=== PATIENT | female | born 1940 | race Caucasian/White ===

== ENCOUNTER 2017-11-13 14:29 | Emergency (ER) | payer MEDICARE ==
[~2017-11-13 14:29] MED LIST: ALPR0.255 PO; AMLO5TAB2 PO; ASPI-555 PO; LEVO75 PO; LISI-613 PO; OLOP2.5D OP; OXYB5TAB10 PO; PANT40TA25 PO; PROP15DR28 OP; SERT25TA PO
[2017-11-13 14:45] LABS: BASOPHILS % (AUTO) 0.9 % (0.0-5.0); EOSINOPHILS % (AUTO) 2.3 % (0.0-8.0); HEMATOCRIT 34.9 % (36-48); LYMPHOCYTES % (AUTO) 36.6 % (21.0-51.0); MEAN CORPUSCULAR HGB CONC 35.4 g/dL (32.0-36.0); MEAN CORPUSCULAR VOLUME 87.6 fL (79-99); MONOCYTES % (AUTO) 6.9 % (3.0-13.0); NEUTROPHILS % (AUTO) 53.3 % (40.0-77.0); NUCLEATED RED BLOOD CELLS 0.1 % (0.0-0.19); PLATELET COUNT (AUTO) 306 K/uL (130-400); RED BLOOD CELL COUNT(AUTO) 3.99 MIL/uL (4.00-5.50); RED CELL DISTRIBUTION WIDTH 13.7 % (11.0-15.5)
[2017-11-13 15:06] LABS: POTASSIUM 4.5 mmol/L (3.5-5.1)
[2017-11-13 15:19] LABS: BILIRUBIN,TOTAL 0.6 mg/dL (0.2-1.0); CREATINE KINASE MB 0.8 ng/mL (0.5-3.6); TOTAL PROTEIN, SERUM 7.6 g/dL (6.0-8.3)
[2017-11-13 15:26] LABS: INR 0.97 (0.85-1.15); PARTIAL THROMBOPLASTIN TIME 25.4 SEC (26.3-35.5)
[2017-11-13 15:50] LABS: AMYLASE 33 U/L (25-115); LIPASE < 50 U/L (114-286)
[2017-11-13 16:50] LABS: APPEARANCE,URINE Cloudy (CLEAR); BILIRUBIN,URINE Negative (NEGATIVE); COLOR,URINE Yellow (YELLOW); GLUCOSE, URINE (UA) Negative (NEGATIVE); KETONES,URINE Negative (NEGATIVE); LEUKOCYTE ESTERASE ,URINE Large (NEGATIVE); NITRATE,URINE Negative (NEGATIVE); OCCULT BLOOD,URINE Negative (NEGATIVE); PROTEIN,URINE Negative (NEGATIVE); UROBILINOGEN,URINE 0.2 mg/dL (0.2-1.0)
[2017-11-13 17:11] LABS: BACTERIA,URINE Few /HPF (None Seen); RBC,URINE None Seen /HPF (0-1); SQUAMOUS EPITHELIAL CELL,UR 30-50 /HPF (0-2); WBC,URINE 26-50 /HPF (0-1)
[2017-11-13] MEDS ORDERED: SODIUM CHLORIDE 0.9% 1000ML 1,000 ML IV ONE (18:01)
[2017-11-13] MEDS ORDERED: LEVOFLOXACIN 500 MG TABLET ONE (18:02)
== END 2017-11-13 19:09 | disposition home or self-care (01) ==
LOC: EDH 14:29
DX: N39.0 Urinary tract infection, site not specified (principal); R10.84 Generalized abdominal pain; I10 Essential (primary) hypertension; R63.0 Anorexia; Z88.0 Allergy status to penicillin; Z88.8 Allergy status to other drugs, medicaments and biological substances; Z90.49 Acquired absence of other specified parts of digestive tract
CPT/HCPCS: 36415; 71045; 74176; 80053; 81001; 82150; 82550; 82553; 83605; 83690; 84484; 85025; 85378; 85610; 85730; 87088; 87186; 93005; 96360; 99285; J7030

== ENCOUNTER 2017-11-25 13:57 | Emergency (ER) | payer MEDICARE ==
[2017-11-25 14:28] LABS: BASOPHILS % (AUTO) 0.9 % (0.0-5.0); EOSINOPHILS % (AUTO) 2.2 % (0.0-8.0); HEMATOCRIT 35.2 % (36-48); LYMPHOCYTES % (AUTO) 24.6 % (21.0-51.0); MEAN CORPUSCULAR HEMOGLOBIN 29.7 pg (27.0-33.0); MEAN CORPUSCULAR HGB CONC 34.2 g/dL (32.0-36.0); MEAN CORPUSCULAR VOLUME 87.1 fL (79-99); NEUTROPHILS % (AUTO) 66.3 % (40.0-77.0); PLATELET COUNT (AUTO) 314 K/uL (130-400); RED BLOOD CELL COUNT(AUTO) 4.04 MIL/uL (4.00-5.50); RED CELL DISTRIBUTION WIDTH 13.6 % (11.0-15.5); WHITE BLOOD COUNT (AUTO) 4.9 K/uL (4.8-10.8)
[2017-11-25 14:42] LABS: POTASSIUM 4.6 mmol/L (3.5-5.1)
[2017-11-25 14:47] LABS: BILIRUBIN,TOTAL 0.7 mg/dL (0.2-1.0); TOTAL PROTEIN, SERUM 7.4 g/dL (6.0-8.3)
[2017-11-25] MEDS ORDERED: IOPAMIDOL-370 75 ML VIAL IV ONE (15:58)
[2017-11-25] MEDS ORDERED: BISACODYL 10 MG SUPP.RECT RC ONE (17:31)
== END 2017-11-25 18:16 | disposition home or self-care (01) ==
LOC: EDH 13:57
DX: K56.41 Fecal impaction (principal); I10 Essential (primary) hypertension; G20 Parkinson's disease; Z88.0 Allergy status to penicillin; Z88.1 Allergy status to other antibiotic agents; Z88.8 Allergy status to other drugs, medicaments and biological substances
CPT/HCPCS: 36415; 74177; 80053; 85025; 99285; Q9967

== ENCOUNTER 2018-01-13 10:48 | Inpatient (IN) | payer MEDICARE ==
[~2018-01-13] VITALS: Ht 121.9 cm; Wt 60.5 kg
[2018-01-13 12:05] LABS: BASOPHILS % (AUTO) 0.9 % (0.0-5.0); EOSINOPHILS % (AUTO) 0.9 % (0.0-8.0); HEMATOCRIT 34.7 % (36-48); LYMPHOCYTES % (AUTO) 29.7 % (21.0-51.0); MEAN CORPUSCULAR HEMOGLOBIN 30.3 pg (27.0-33.0); MEAN CORPUSCULAR HGB CONC 34.2 g/dL (32.0-36.0); MEAN CORPUSCULAR VOLUME 88.6 fL (79-99); MONOCYTES % (AUTO) 6.5 % (3.0-13.0); PLATELET COUNT (AUTO) 337 K/uL (130-400); RED BLOOD CELL COUNT(AUTO) 3.92 MIL/uL (4.00-5.50); RED CELL DISTRIBUTION WIDTH 13.8 % (11.0-15.5); WHITE BLOOD COUNT (AUTO) 4.9 K/uL (4.8-10.8)
[2018-01-13 12:12] LABS: POTASSIUM 4.7 mmol/L (3.5-5.1)
[2018-01-13 12:18] LABS: ALBUMIN 3.8 g/dL (3.5-5.0); BILIRUBIN,TOTAL 0.8 mg/dL (0.2-1.0); TOTAL PROTEIN, SERUM 7.2 g/dL (6.0-8.3)
[2018-01-13 12:23] LABS: INR 1.01 (0.85-1.15); PARTIAL THROMBOPLASTIN TIME 26.8 SEC (26.3-35.5); PROTHROMBIN TIME 10.6 SEC (9.6-11.6)
[2018-01-13] MEDS ORDERED: HYDRALAZINE HCL 20 MG/ML VIAL IV PRN (13:00)
[2018-01-13] MEDS ORDERED: NITROGLYCERIN 1GM/1 INCH PACKET TD ONE (13:01)
[2018-01-13] MEDS ORDERED: MORPHINE SULFATE 4 MG/1ML SYG ONE (13:02)
[2018-01-13 15:17] LABS: CREATINE KINASE MB 0.9 ng/mL (0.5-3.6); CREATINE KINASE, TOTAL 27 U/L (21-232); MYOGLOBIN 52 ng/mL (10-92); TROPONIN I < 0.04 ng/mL (0.00-0.06)
[2018-01-13 21:19] LABS: CREATINE KINASE MB 1.3 ng/mL (0.5-3.6); CREATINE KINASE, TOTAL 35 U/L (21-232); MYOGLOBIN 79 ng/mL (10-92); TROPONIN I < 0.04 ng/mL (0.00-0.06)
[2018-01-14 05:56] LABS: HEMATOCRIT 33.9 % (36-48); MEAN CORPUSCULAR HEMOGLOBIN 30.7 pg (27.0-33.0); MEAN CORPUSCULAR HGB CONC 34.7 g/dL (32.0-36.0); MEAN CORPUSCULAR VOLUME 88.2 fL (79-99); PLATELET COUNT (AUTO) 297 K/uL (130-400); RED BLOOD CELL COUNT(AUTO) 3.84 MIL/uL (4.00-5.50); WHITE BLOOD COUNT (AUTO) 5.1 K/uL (4.8-10.8)
[2018-01-14 06:21] LABS: CARBON DIOXIDE 27 mmol/L (21-32); CHLORIDE 101 mmol/L (101-111); CREATINE KINASE MB 1.5 ng/mL (0.5-3.6); CREATINE KINASE, TOTAL 37 U/L (21-232); GLOMERULAR FILTR. RATE CALC 57 mL/min (>60); GLUCOSE,RANDOM 113 mg/dL (70-105); MYOGLOBIN 77 ng/mL (10-92); POTASSIUM 3.9 mmol/L (3.5-5.1); SODIUM SERUM 136 mmol/L (136-145); TROPONIN I < 0.04 ng/mL (0.00-0.06); UREA NITROGEN, BLOOD 16 mg/dL (7-18)
[2018-01-14 06:32] LABS: BAND NEUTROPHILS % (MANUAL) 1 % (0-2); EOSINOPHILS % (MANUAL) 3 % (1-6); LYMPHOCYTES % (MANUAL) 37 % (22-44); MAN.DIFF COMMENT-IMPRESSION MANUAL DIFFERENTIAL; MONOCYTES % (MANUAL) 4 % (2-9); SEGMENTED NEUTROPHILS % 55 % (40-70)
[2018-01-14 06:33] LABS: PLATELET MORPHOLOGY COMMENT ADEQUATE
[2018-01-14] MEDS ORDERED: PANTOPRAZOLE SODIUM 40 MG TABLET.DR PO ONE (08:35)
[2018-01-14] MEDS ORDERED: PAROXETINE HCL 20 MG TABLET PO SCH (08:46)
[2018-01-14] MEDS ORDERED: PANTOPRAZOLE SODIUM 40 MG TABLET.DR PO SCH (09:00)
[2018-01-14] MEDS: PANTOPRAZOLE SODIUM 40 MG TABLET.DR PO SCH (09:00)
[2018-01-14] MEDS: PAROXETINE HCL 20 MG TABLET PO SCH (09:00)
[2018-01-14] MEDS ORDERED: TRAM50TA4 PO (10:37)
[2018-01-14 13:20] VITALS: BP 165/83
[2018-01-14 16:13] VITALS: BP 171/77
[2018-01-14] MEDS ORDERED: DiphenhydrAMINE HCL 50 MG/ML VIAL ONE (17:31)
[2018-01-14] MEDS ORDERED: DiphenhydrAMINE HCL 50 MG/ML VIAL IV STA (17:42)
[2018-01-14] MEDS ORDERED: LACTULOSE 20 GM/30 ML UDCUP PO PRN (18:00)
[2018-01-14 20:00] VITALS: BP 135/56
[2018-01-14] MEDS ORDERED: TRAMADOL HCL 50 MG TABLET PO PRN (20:45)
[2018-01-14] MEDS: LISINOPRIL 20 MG TABLET PO SCH ×2 (21:00→21:19)
[2018-01-14] MEDS: AMLODIPINE BESYLATE 5 MG TAB PO SCH ×2 (21:00→21:18)
[2018-01-14] MEDS: ENOXAPARIN SODIUM 30 MG/0.3 ML SQ SCH ×2 (21:00→21:20)
[2018-01-14 23:48] VITALS: BP 120/52
[2018-01-15 04:00] VITALS: BP 146/68
[2018-01-15] MEDS: LEVOTHYROXINE 75 MCG TABLET PO SCH (06:30)
[2018-01-15 08:21] VITALS: BP 163/79
[2018-01-15] MEDS: ENOXAPARIN SODIUM 30 MG/0.3 ML SQ SCH (08:38)
[2018-01-15] MEDS: PANTOPRAZOLE SODIUM 40 MG TABLET.DR PO SCH ×2 (09:00→16:51)
[2018-01-15] MEDS: SYSTANE EYE OP SCH (09:00)
[2018-01-15] MEDS: OXYBUTYNIN CHLORIDE 5 MG TABLET PO SCH (09:00)
[2018-01-15] MEDS: PAROXETINE HCL 20 MG TABLET PO SCH (09:00)
[2018-01-15] MEDS ORDERED: REGADENOSON 0.4 MG/5 ML PF SYG IVP SCH (10:15)
[2018-01-15 16:35] VITALS: BP 172/79
[2018-01-15] MEDS: ASPIRIN 81 MG EC TAB PO SCH (16:50)
[2018-01-15] MEDS: LISINOPRIL 20 MG TABLET PO SCH ×2 (16:51→21:00)
[2018-01-15] MEDS ORDERED: ONDANSETRON HCL 4 MG/2 ML VIAL IVP PRN (17:45)
[2018-01-15 20:00] VITALS: BP 118/53
[2018-01-15] MEDS: AMLODIPINE BESYLATE 5 MG TAB PO SCH (21:00)
[2018-01-15 23:22] VITALS: BP 116/66
[2018-01-16 04:00] VITALS: BP 142/72
[2018-01-16] MEDS: LEVOTHYROXINE 75 MCG TABLET PO SCH (06:29)
[2018-01-16 07:40] VITALS: BP 167/66
[2018-01-16] MEDS: SYSTANE EYE OP SCH (08:11)
[2018-01-16] MEDS: PANTOPRAZOLE SODIUM 40 MG TABLET.DR PO SCH ×2 (08:18→08:19)
[2018-01-16] MEDS: PAROXETINE HCL 20 MG TABLET PO SCH (08:19)
[2018-01-16] MEDS: LISINOPRIL 20 MG TABLET PO SCH (08:19)
[2018-01-16] MEDS: ASPIRIN 81 MG EC TAB PO SCH (08:19)
[2018-01-16] MEDS: OXYBUTYNIN CHLORIDE 5 MG TABLET PO SCH (08:19)
[2018-01-16] MEDS: ENOXAPARIN SODIUM 30 MG/0.3 ML SQ SCH (08:20)
[2018-01-16 11:49] VITALS: BP_SYST 128; BP_SYST 174; BP_DIAS 84; BP_DIAS 91
[2018-01-16 15:44] VITALS: BP 114/60
== END 2018-01-16 16:11 | DRG 206 ==
LOC: EDH 10:48 → EDHIP 12:51 → 4CH 01-14 12:25
PROVIDERS: ADMIT Family Medicine; ATTEND Family Medicine
DX: M94.0 Chondrocostal junction syndrome [Tietze] (principal); E78.5 Hyperlipidemia, unspecified; F32.9 Major depressive disorder, single episode, unspecified; G20 Parkinson's disease; I10 Essential (primary) hypertension; Z96.642 Presence of left artificial hip joint; I25.10 Atherosclerotic heart disease of native coronary artery without angina pectoris; I35.1 Nonrheumatic aortic (valve) insufficiency; Z82.0 Family history of epilepsy and other diseases of the nervous system; Z82.3 Family history of stroke; Z82.49 Family history of ischemic heart disease and other diseases of the circulatory system; Z82.5 Family history of asthma and other chronic lower respiratory diseases; Z83.3 Family history of diabetes mellitus; Z95.5 Presence of coronary angioplasty implant and graft; Z88.0 Allergy status to penicillin; Z88.1 Allergy status to other antibiotic agents; Z88.8 Allergy status to other drugs, medicaments and biological substances; Z28.21 Immunization not carried out because of patient refusal
CPT/HCPCS: 36415; 71045; 78452; 80048; 80053; 82550; 82553; 83874; 83880; 84484; 85025; 85610; 85730; 93005; 93017; 93306; 96374; A9500; J0360; J1200; J1650; J2270; J2785

== ENCOUNTER 2018-04-27 13:21 | Emergency (ER) | payer MEDICARE ==
[~2018-04-27 13:21] MED LIST changes: -ALPR0.255 PO; -AMLO5TAB2 PO; +AMLO5TAB7 PO; -SERT25TA PO; +TRAM50TA4 PO
[2018-04-27 15:01] LABS: BASOPHILS % (AUTO) 1.1 % (0.0-5.0); EOSINOPHILS % (AUTO) 2.7 % (0.0-8.0); HEMATOCRIT 34.4 % (36-48); LYMPHOCYTES % (AUTO) 32.4 % (21.0-51.0); MEAN CORPUSCULAR HEMOGLOBIN 30.5 pg (27.0-33.0); MEAN CORPUSCULAR HGB CONC 34.2 g/dL (32.0-36.0); MEAN CORPUSCULAR VOLUME 89.2 fL (79-99); MONOCYTES % (AUTO) 7.8 % (3.0-13.0); PLATELET COUNT (AUTO) 293 K/uL (130-400); RED BLOOD CELL COUNT(AUTO) 3.86 MIL/uL (4.00-5.50); RED CELL DISTRIBUTION WIDTH 13.2 % (11.0-15.5); WHITE BLOOD COUNT (AUTO) 4.1 K/uL (4.8-10.8)
[2018-04-27 15:27] LABS: POTASSIUM 4.3 mmol/L (3.5-5.1)
[2018-04-27] MEDS ORDERED: ONDANSETRON HCL 4 MG/2 ML VIAL ONE (15:43)
[2018-04-27] MEDS ORDERED: SODIUM CHLORIDE 0.9% 1000ML 1,000 ML IV ONE (15:44)
[2018-04-27 15:47] LABS: APPEARANCE,URINE CLOUDY (CLEAR); BILIRUBIN,URINE NEGATIVE (NEGATIVE); COLOR,URINE YELLOW (YELLOW); GLUCOSE, URINE (UA) NEGATIVE (NEGATIVE); KETONES,URINE NEGATIVE (NEGATIVE); LEUKOCYTE ESTERASE ,URINE MODERATE (NEGATIVE); NITRATE,URINE NEGATIVE (NEGATIVE); OCCULT BLOOD,URINE NEGATIVE (NEGATIVE); PROTEIN,URINE NEGATIVE (NEGATIVE); UROBILINOGEN,URINE 0.2 mg/dL (0.2-1.0)
[2018-04-27 16:25] LABS: BACTERIA,URINE Few /HPF (None Seen); RBC,URINE 0-1 /HPF (0-1); SQUAMOUS EPITHELIAL CELL,UR Moderate /HPF (0-2)
== END 2018-04-27 17:49 | disposition home or self-care (01) ==
LOC: EDH 13:21
DX: K59.00 Constipation, unspecified (principal); M48.56XA Collapsed vertebra, not elsewhere classified, lumbar region, initial encounter for fracture; N39.0 Urinary tract infection, site not specified; I10 Essential (primary) hypertension; G20 Parkinson's disease; Z88.0 Allergy status to penicillin; Z88.8 Allergy status to other drugs, medicaments and biological substances; Z90.49 Acquired absence of other specified parts of digestive tract; Z98.890 Other specified postprocedural states; Z96.642 Presence of left artificial hip joint
CPT/HCPCS: 36415; 74176; 80048; 81001; 85025; 96374; 99285; J2405; J7030

== ENCOUNTER 2018-07-25 19:45 | Inpatient (IN) | payer MEDICARE ==
[~2018-07-25] VITALS: Ht 152.4 cm; Wt 66.6 kg
[2018-07-25 20:23] LABS: BASOPHILS % (AUTO) 1.1 % (0.0-5.0); EOSINOPHILS % (AUTO) 1.9 % (0.0-8.0); HEMATOCRIT 33.9 % (36-48); LYMPHOCYTES % (AUTO) 19.7 % (21.0-51.0); MEAN CORPUSCULAR HEMOGLOBIN 30.6 pg (27.0-33.0); MEAN CORPUSCULAR HGB CONC 34.2 g/dL (32.0-36.0); MEAN CORPUSCULAR VOLUME 89.5 fL (79-99); MONOCYTES % (AUTO) 8.1 % (3.0-13.0); NEUTROPHILS % (AUTO) 69.2 % (40.0-77.0); PLATELET COUNT (AUTO) 285 K/uL (130-400); RED BLOOD CELL COUNT(AUTO) 3.78 MIL/uL (4.00-5.50); RED CELL DISTRIBUTION WIDTH 14.6 % (11.0-15.5); WHITE BLOOD COUNT (AUTO) 6.5 K/uL (4.8-10.8)
[2018-07-25 20:36] LABS: POTASSIUM 4.6 mmol/L (3.5-5.1)
[2018-07-25 20:41] LABS: ALBUMIN 3.7 g/dL (3.5-5.0); BILIRUBIN,TOTAL 0.4 mg/dL (0.2-1.0); TOTAL PROTEIN, SERUM 7.1 g/dL (6.0-8.3)
[2018-07-25 21:01] LABS: APPEARANCE,URINE Clear (CLEAR); BILIRUBIN,URINE Negative (NEGATIVE); COLOR,URINE Yellow (YELLOW); GLUCOSE, URINE (UA) Negative (NEGATIVE); KETONES,URINE Negative (NEGATIVE); LEUKOCYTE ESTERASE ,URINE Negative (NEGATIVE); NITRATE,URINE Negative (NEGATIVE); OCCULT BLOOD,URINE Negative (NEGATIVE); PH,URINE 7.5 (5.0-8.0); PROTEIN,URINE Negative (NEGATIVE)
[2018-07-26] VITALS (8 sets, daily range): BP systolic 127–199; BP diastolic 52–84
[2018-07-26] MEDS ORDERED: ACETAMINOPHEN 325 MG TAB ONE (00:06)
[2018-07-26] MEDS ORDERED: DIPHENHYDRAMINE HCL 25 MG CAPSULE ONE (00:06)
[2018-07-26] MEDS ORDERED: CLONIDINE HCL 0.1 MG TABLET ONE (00:39)
[2018-07-26] MEDS ORDERED: LEVO50TA11 PO (01:57)
[2018-07-26] MEDS ORDERED: DiphenhydrAMINE HCL 50 MG/ML VIAL IVP PRN (02:00)
[2018-07-26] MEDS ORDERED: POTASSIUM CHLORIDE 20 MEQ ERTAB PO PRN (02:00)
[2018-07-26] MEDS ORDERED: MAG HYDROX/AL HYDROX/SIMETH ES 30 ML SUSP UDCUP PO PRN (02:00)
[2018-07-26] MEDS ORDERED: POTASSIUM CHLORIDE 10% ELIXIR 20 MEQ/15 ML UDCUP PO PRN (02:00)
[2018-07-26] MEDS: SODIUM CHLORIDE 0.9% 1000ML 1,000 ML IV SCH ×2 (02:00→19:32)
[2018-07-26] MEDS ORDERED: ACETAMINOPHEN 325 MG TAB PO PRN (02:00)
[2018-07-26] MEDS ORDERED: LIDOCAINE HCL-MPF 1% 2ML VIAL IJ PRN (02:00)
[2018-07-26] MEDS ORDERED: NITROGLYCERIN 0.4 MG SL TAB SL PRN (02:00)
[2018-07-26] MEDS ORDERED: DIPHENHYDRAMINE HCL 25 MG CAPSULE PO PRN (02:00)
[2018-07-26] MEDS ORDERED: GUAIFENESIN-DM 200/20 MG 10 ML PO PRN (02:00)
[2018-07-26] MEDS ORDERED: ZOLPIDEM TARTRATE 5 MG TAB PO PRN (02:00)
[2018-07-26] MEDS ORDERED: LACTULOSE 20 GM/30 ML UDCUP PO PRN ×2 (02:00→10:00)
[2018-07-26] MEDS ORDERED: SODIUM CHLORIDE 0.9% 10 ML VIAL IVP PRN (02:00)
[2018-07-26] MEDS ORDERED: GUAIFENESIN SUGAR-FREE 100 MG/5 ML UDCUP PO PRN (02:00)
[2018-07-26] MEDS ORDERED: POTASSIUM CHLORIDE 20MEQ/100ML 100 ML IV PRN (02:00)
[2018-07-26] MEDS ORDERED: CLONIDINE HCL 0.1 MG TABLET PO PRN (02:00)
[2018-07-26] MEDS ORDERED: ONDANSETRON HCL 4 MG/2 ML VIAL IVP PRN (02:00)
[2018-07-26] MEDS ORDERED: AMAN100C12 PO (02:02)
[2018-07-26] MEDS ORDERED: LINA72CA PO (02:07)
[2018-07-26] MEDS ORDERED: LACT10SO PO (02:07)
[2018-07-26 05:06] LABS: HEMATOCRIT 30.4 % (36-48); MEAN CORPUSCULAR HEMOGLOBIN 29.8 pg (27.0-33.0); MEAN CORPUSCULAR HGB CONC 33.2 g/dL (32.0-36.0); MEAN CORPUSCULAR VOLUME 89.7 fL (79-99); PLATELET COUNT (AUTO) 246 K/uL (130-400); RED BLOOD CELL COUNT(AUTO) 3.39 MIL/uL (4.00-5.50); RED CELL DISTRIBUTION WIDTH 14.6 % (11.0-15.5); WHITE BLOOD COUNT (AUTO) 6.1 K/uL (4.8-10.8)
[2018-07-26 05:21] LABS: CREATININE 1.3 mg/dL (0.5-1.5); POTASSIUM 4.1 mmol/L (3.5-5.1)
[2018-07-26] MEDS: ACETAMINOPHEN 325 MG TAB PO PRN (08:11)
[2018-07-26] MEDS ORDERED: ACETAMINOPHEN-CODEINE 300/30MG TAB PO PRN (09:15)
[2018-07-26] MEDS ORDERED: TRAMADOL HCL 50 MG TABLET PO PRN (09:30)
[2018-07-26] MEDS: ARTIFICAL TEARS SOL 15 ML OP SCH (14:41)
[2018-07-26] MEDS: AMANTADINE HCL 100 MG CAPSULE PO SCH (16:11)
[2018-07-26] MEDS: LISINOPRIL 20 MG TABLET PO SCH (19:34)
[2018-07-27 04:00] VITALS: BP 151/51
[2018-07-27] MEDS: LEVOTHYROXINE 50 MCG TABLET PO SCH (06:39)
[2018-07-27 07:49] VITALS: BP 152/54
[2018-07-27] MEDS: PANTOPRAZOLE SODIUM 40 MG TABLET.DR PO SCH (08:52)
[2018-07-27] MEDS: OXYBUTYNIN CHLORIDE 5 MG TABLET PO SCH (08:52)
[2018-07-27] MEDS: LISINOPRIL 20 MG TABLET PO SCH ×2 (08:53→19:17)
[2018-07-27] MEDS: ARTIFICAL TEARS SOL 15 ML OP SCH (08:53)
[2018-07-27] MEDS: ASPIRIN 81MG TAB.CHEW PO SCH (08:53)
[2018-07-27] MEDS: LINZESS PO SCH (08:54)
[2018-07-27 11:36] VITALS: BP 162/58
[2018-07-27] MEDS: SODIUM CHLORIDE 0.9% 1000ML 1,000 ML IV SCH (12:42)
[2018-07-27] MEDS: ACETAMINOPHEN 325 MG TAB PO PRN ×2 (14:40→22:46)
[2018-07-27] MEDS: AMANTADINE HCL 100 MG CAPSULE PO SCH (16:45)
[2018-07-27 17:31] VITALS: BP 153/53
[2018-07-27 19:45] VITALS: BP 144/55
[2018-07-27 23:20] VITALS: BP 160/56
[2018-07-28 03:17] VITALS: BP 164/54
[2018-07-28 04:00] VITALS: BP 164/54
[2018-07-28] MEDS: LEVOTHYROXINE 50 MCG TABLET PO SCH (06:12)
[2018-07-28 08:16] VITALS: BP 188/76
[2018-07-28] MEDS: LISINOPRIL 20 MG TABLET PO SCH (08:27)
[2018-07-28] MEDS: PANTOPRAZOLE SODIUM 40 MG TABLET.DR PO SCH (08:27)
[2018-07-28] MEDS: ASPIRIN 81MG TAB.CHEW PO SCH (08:27)
[2018-07-28] MEDS: OXYBUTYNIN CHLORIDE 5 MG TABLET PO SCH (08:27)
[2018-07-28] MEDS: LINZESS PO SCH (09:00)
[2018-07-28] MEDS: ARTIFICAL TEARS SOL 15 ML OP SCH (10:39)
[2018-07-28 12:02] VITALS: BP 173/70
[2018-07-28 12:30] VITALS: BP 155/89
== END 2018-07-28 14:16 | DRG 563 ==
LOC: EDH 19:45 → EDHIP 23:39 → 4AH 07-26 00:18
PROVIDERS: ADMIT Family Medicine; ATTEND Family Medicine
DX: S62.521A Displaced fracture of distal phalanx of right thumb, initial encounter for closed fracture (principal); S00.83XA Contusion of other part of head, initial encounter; X58.XXXA Exposure to other specified factors, initial encounter; I10 Essential (primary) hypertension; G20 Parkinson's disease; I25.10 Atherosclerotic heart disease of native coronary artery without angina pectoris; W19.XXXA Unspecified fall, initial encounter; R53.81 Other malaise; Z96.642 Presence of left artificial hip joint; Y92.002 Bathroom of unspecified non-institutional (private) residence as the place of occurrence of the external cause; Z95.5 Presence of coronary angioplasty implant and graft; Y93.89 Activity, other specified; Y99.8 Other external cause status; Z88.0 Allergy status to penicillin; Z88.8 Allergy status to other drugs, medicaments and biological substances
CPT/HCPCS: 36415; 70450; 71100; 73130; 80048; 80053; 81003; 82550; 84484; 85025; 85027; 93005; 93971; 97039; G0008; G0378; Q0163